=== PATIENT | female | born 1985 | race Caucasian/White ===

== ENCOUNTER 2017-06-11 21:05 | Emergency (ER) | payer OTHER ==
[~2017-06-11] VITALS: Ht 167.6 cm; Wt 91.1 kg
[~2017-06-11 21:05] MED LIST: METHADONE HCL40 MG PO; NAPROXEN500 MG PO; NOHOMEMEDS
[2017-06-11 21:37] LABS: MCH 29.8 PG (29.0-34.0); MCHC 33.2 G/DL (30.0-36.0); MCV 89.8 FL (83-99); MEAN PLAT.VOLUME 10.3 uM^3 (9.5-12.4); PLATELET COUNT 169 K/uL (156-360); RBC DIS.WIDTH-CV 13.8 % (11.8-14.6); RBC DIS.WIDTH-SD 45.2 % (39-53); RED BLOOD COUNT 4.23 M/uL (3.80-5.20)
[2017-06-11 21:47] LABS: CHLORIDE 104 mEq/L (99-109); POTASSIUM 3.7 mEq/L (3.7-5.4); SODIUM 139 mEq/L (136-147)
[2017-06-11 21:49] LABS: GLUCOSE 94 mg/dL (70-99)
[2017-06-11 21:50] LABS: ANION GAP 10 MEQ/L (2-14)
[2017-06-11 21:53] LABS: GFR ESTIMATE (CALCULATED) > 59 mL/min/
[2017-06-11 21:54] LABS: UREA NITROGEN (BUN) 14 mg/dL (9-23)
[2017-06-11 21:58] LABS: TROP-I INTERPRETATION NEGATIVE; TROPONIN-I < 0.01 ng/mL (0.0-0.30)
[2017-06-11 23:02] VITALS: BP 135/60
== END 2017-06-11 23:03 | disposition home or self-care (01) ==
LOC: EME → EDBD 21:05 → EME 21:05
PROVIDERS: Emergency Medicine
DX: R56.9 Unspecified convulsions (principal); R55 Syncope and collapse
CPT/HCPCS: 70450; 80048; 84484; 85027; 93005; 99281; 99284